=== PATIENT | male | born 1940 | race Caucasian/White ===

== ENCOUNTER 2018-12-30 12:35 | Inpatient (IN) ==
--- NOTE | 2018-12-30 14:01 | EKG Report ---
Test Performed on : 12/30/2018 1:55:34 PM Test Reason : CHF/CP Blood Pressure : / mmHG Vent. Rate : 087 BPM Atrial Rate : 097 BPM P-R Int : 000 ms QRS Dur : 100 ms QT Int : 362 ms P-R-T Axes : 000 007 055 degrees QTc Int : 435 ms Atrial fibrillation. Nonspecific T wave abnormality Abnormal ECG No previous ECGs available Unconfirmed Result
--- NOTE | 2018-12-30 14:19 | Diag Imaging Result Doc PS360 ---
CHEST-PORTABLE - 12/30/2018 INDICATION: CHF/CP COMPARISON: 09/02/2015 FINDINGS: There is cardiomegaly and pulmonary vascular congestion. Lung volume are low. There may be some trace interstitial pulmonary edema centrally. No significant pleural effusion. IMPRESSION: Cardiomegaly, pulmonary vascular congestion, perhaps trace pulmonary edema. Electronically signed by Donnie Pace 12/30/2018 2:17 PM
[2018-12-30 14:23] LABS: BASO# 0.04 X1000 (0.0-0.2); BASO% 0.6 % (0.0-0.8); EOS# 0.13 X1000 (0.0-0.7); EOS% 1.8 % (0.0-10.0); HEMATOCRIT 42.2 % (42.0-52.0); HEMOGLOBIN 13.7 g/dL (14.0-18.0); LYMPH% 15.4 % (20.5-51.1); MCH 32.7 PG (27-31); MCHC 32.5 g/dL (33-37); MCV 100.7 FL (81-99); MONO# 1.07 X1000 (0.11-0.59); MONO% 14.9 % (1.7-9.3); MPV 11.2 FL (7.4-10.4); NEUT# 4.82 X1000 (1.4-6.5); NEUT% 67.3 % (42.2-75.2); PLT 137 X1000 (130-400); RBC 4.19 XMIL (4.7-6.1); RDW 13.2 % (11.5-14.5); WBC 7.16 X1000 (4.8-10.8)
[2018-12-30 14:48] LABS: BANDS 1 % (0-1); BASO 1 % (0-1); LYMPHS 26 % (21-51); MONO 4 % (1-9); SEGS 66 % (42-75)
[2018-12-30 14:49] LABS: HYPOCHROM OCCASIONAL; LARGE PLATELETS OCCASIONAL
[2018-12-30 14:54] LABS: CALCIUM 9.5 mg/dL (8.8-10.2); CREATININE 2.2 mg/dL (0.7-1.2); MAGNESIUM 2.3 mg/dL (1.5-2.7); POTASSIUM 5.4 mmol/L (3.5-5.1)
[2018-12-30] MEDS ORDERED: SODIUM CHLORIDE 0.9% INJ SCH (16:00)
[2018-12-30] MEDS: HUMULIN R SUBQ SCH ×2 (16:25→21:24)
[2018-12-30] MEDS ORDERED: SAMSCA PO ONE (16:31)
[2018-12-30] MEDS: PROTONIX IV SCH (17:19)
[2018-12-30 17:24] LABS: ALLEN TEST YES; BE -0.6 mmoll (-3.0-3.0); BLOOD TYPE ARTERIAL; HCO3-(ACT) 24.3 mmoll (20.0-26.0); METHB 1.1 % (0.0-1.5); O2(CT) 18.7 mL/dL (15.0-23.0); O2HB 93.3 % (95.0-99.0); PO2(98.6) 78 mmHg (60-100); SAMPLE BLOOD; SAO2 96.6 % (95.0-100.0); THB 14.2 g/dL (11.5-17.4); pH(98.6) 7.32 (7.35-7.45)
[2018-12-30 17:29] LABS: MODALITY CANNULA; PCO2(98.6) 51 mmHg (35-45)
--- NOTE | 2018-12-30 19:02 | HISTORY AND PHYSICAL ---
CHIEF COMPLAINT: Shortness of breath, PND and orthopnea for the last few days. HISTORY OF PRESENT ILLNESS: He is an 78-year-old white gentleman who was not seen in my office since 08/2016 and his . Apparently he is going to [place] back and forth. Recently he is staying most often in [place] with one of his daughter. 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 He came in my office today with shortness of breath, PND and orthopnea. No swelling of feet. He has known history of chronic atrial fibrillation, on anticoagulants with Eliquis. Recently his creatinine is going up. He has chronic kidney disease. Chest x-ray showed cardiomegaly with mild CHF. Basically admitted to [facility] in acute congestive heart failure. ProBNP was high. PAST MEDICAL HISTORY: 1. Allergic rhinitis. 2. Deafness, on hearing aids. 3. Coronary artery disease, status post bypass surgery. 4. Hyperlipidemia. 5. Hypothyroidism. 6. Type 2 diabetes. 7. Chronic atrial fibrillation. PAST SURGICAL HISTORY: Bilateral cataract surgery, bypass surgery, right knee total arthroplasty. MEDICATIONS: Aspirin 81 mg daily; Crestor 20 daily; Singulair 10 daily; Synthroid 75 mcg daily; Eliquis 5 mg p.o. b.i.d.; amlodipine 5 daily; Amaryl 4 mg p.o. b.i.d.; amitriptyline 25 daily; Levemir 20 units subcutaneously in the morning, 15 in the evening.; vitamin E 400 daily. ALLERGIES: Penicillin and promethazine. SOCIAL HISTORY: Currently lives in [place]. No smoking, no alcohol. , 4 children. Retired. Vaccinations: Influenza vaccine in 2018, pneumococcal in 2014. FAMILY HISTORY: Father at 35 from surgical complication. Mother of heart attack at 70. REVIEW OF SYSTEMS: HEENT: No headache. No vision problem. Deafness. No sore throat. Neck: No goiter. No lymphadenopathy. No bruit. Cardiopulmonary: Cough, shortness of breath, wheezing. No chest pain. No swelling of feet. GI: No nausea, vomiting, abdominal pain. : No history of hesitancy, frequency or dysuria. He has ulcerative knot healing on the right lateral side of the foot, slowly healing. No claudication symptoms. No tingling or numbness. Neurologic: No focal symptoms, weakness or seizure activity. PHYSICAL EXAMINATION: VITAL SIGNS: Temperature is 98 degrees, pulse is 89, blood pressure is 141/82, on 3 L nasal cannula 96%. Five feet 10 inches, 217 pounds. HEENT: Atraumatic, normocephalic. Pupils equal and react to light. He has hearing aids. NECK: Supple. JVD slightly elevated. CHEST: Crackles on bilateral. HEART: Sounds are erratic with a gallop. No S4. He has a 2/6 systolic murmur in the left lower sternal border in aortic area. ABDOMEN: Belly is soft, nontender. Good bowel sounds. RECTAL: Deferred. EXTREMITIES: No peripheral edema noted. Sensory exam is intact. He has a 0.5 cm small ulcer on the lateral side of the right foot noted. LABORATORY DATA: CBC: White cell count 7.1, hematocrit 42, platelets 137,000. ABG: PH is 7.32, pCO2 is 51, pO2 is 78 on 32%. SMA 7: Sodium 129 in my office, potassium 5.4, BUN 34, creatinine 2.2, glucose 151. Magnesium, cardiac enzymes were negative. ProBNP 7000. DIAGNOSTIC DATA: EKG showed atrial fibrillation. Chest x-ray: Cardiomegaly with CHF. No pleural effusions. ASSESSMENT AND PLAN: 1. An 78-year-old white gentleman admitted to the hospital with congestive heart failure. I do not have baseline ejection fraction. We will repeat the echocardiography, with underlying chronic atrial fibrillation. Plan is (1) oxygen, fluid restrictions, daily weights, intravenous Lasix and Samsca 1 dose. (2) Follow up on SMA 7. 2. Chronic kidney disease stage 3. Check the urine protein/creatinine ratio and serum protein electrophoresis. 3. Atrial fibrillation, persistent. Rate control, on his Eliquis. Decrease the dose 2.5 p.o. b.i.d. 4. Type 2 diabetes, on Levemir. Discontinue Amaryl in light of chronic kidney disease. Follow up on sliding scale with insulin coverage. 5. Check bladder scan. Postvoid residual is 80 mL after emptying. 6. Allergic rhinitis. On Singulair. 7. Gastrointestinal prophylaxis with intravenous Protonix. 8. Hyperlipidemia, on Crestor. 9. Depression, on amitriptyline 25 at bedtime. 10. Reconcile home medications. 11. Follow up on the pending labs and echocardiography report. Discussed the plan of care with the family. Will follow up. cc: Jeff Godinez MD MTDD
[2018-12-30] MEDS ORDERED: ELIQUIS PO SCH (21:00)
[2018-12-30] MEDS: CRESTOR PO SCH (21:23)
[2018-12-30] MEDS: ELIQUIS PO SCH (21:23)
[2018-12-30] MEDS: PYRIDOXINE PO SCH (21:23)
[2018-12-30] MEDS: LEVEMIR SUBQ SCH (21:24)
[2018-12-31 06:09] LABS: CALCIUM 9.9 mg/dL (8.8-10.2); CREATININE 2.6 mg/dL (0.7-1.2); POTASSIUM 5.4 mmol/L (3.5-5.1)
[2018-12-31] MEDS: HUMULIN R SUBQ SCH ×4 (06:12→21:06)
[2018-12-31] MEDS: SYNTHROID PO SCH (06:26)
[2018-12-31 08:04] LABS: PROTEIN CREAT RATIO 3.5; UR CREAT RANDOM 35.1 mg/dL (14-26)
[2018-12-31] MEDS: LASIX IV SCH (09:38)
[2018-12-31] MEDS: LEVEMIR SUBQ SCH ×2 (09:38→21:05)
[2018-12-31] MEDS: ASPIRIN PO SCH (09:39)
[2018-12-31] MEDS: NORVASC PO SCH (09:39)
[2018-12-31] MEDS: PYRIDOXINE PO SCH ×2 (09:39→21:06)
[2018-12-31] MEDS: SINGULAIR PO SCH (09:39)
[2018-12-31] MEDS: ELAVIL PO SCH (09:39)
[2018-12-31] MEDS: VITAMIN E PO SCH (09:39)
[2018-12-31] MEDS: ELIQUIS PO SCH ×2 (09:39→21:05)
--- NOTE | 2018-12-31 12:50 | PROGRESS NOTE ---
DATE: 12/31/2018 SUBJECTIVE: An 78-year-old, white gentleman, admitted with shortness of breath, PND and orthopnea, known case of chronic atrial fibrillation. The patient also had chronic kidney disease. Complaining of decreased exercise tolerance. He denied any high-grade fever or chills. Mild cough. No expectoration. Denied any chest pain. This morning, patient is feeling better. He was able to sleep better last night. Admission history and physical noted. PAST MEDICAL HISTORY: Coronary artery disease status post CABG, hypothyroidism. NIDDM, chronic atrial fibrillation. The patient does have deafness, allergic rhinitis. PHYSICAL EXAMINATION: Vital signs: Blood pressure 142/70, pulse 80, respiration 18, temperature 97.8 degrees. Skin: Senile turgor. Neck: Supple. No JVD. Lungs: Bilateral good air entry present. Few basal crepitations. Cardiovascular: S1 and S2 heard. Irregularly irregular, 2/6 systolic murmur at the apex. Abdomen: Soft, globular. Bowel sounds present. Extremities: No cyanosis, clubbing. No acute DVT. Central nervous system: Alert, awake able to move all 4 limbs. LABORATORY DATA: Lab done today, BUN 38, creatinine 2.6, sodium 134, potassium 5.4. ProBNP on admission was 6947. CONSIDERATION: 1. Pulmonary edema. 2. Chronic atrial fibrillation. 3. Diabetes mellitus. 4. Hypothyroidism. 5. Allergic rhinitis, labs and medication noted. Overall plan discussed with the family. We will continue current treatment and close observation. cc: MD Jeff Cardona MD
--- NOTE | 2018-12-31 13:53 | Diag Imaging Result Doc PS360 ---
EXAM: CHEST-2 VIEWS INDICATION: hypoxia TECHNIQUE: 2 views COMPARISON: 12/30/2018 FINDINGS: Lung volumes remain low. Mildly prominent central vasculature suggesting mild pulmonary venous congestion is stable. Mild interstitial thickening that probably represents edema +/- pneumonia more prominent at the right lower lung zone is unchanged. No new consolidation is identified. Cardiac silhouette is stable. IMPRESSION: Stable chest. Electronically signed by Kuldeep Servin 12/31/2018 1:50 PM
[2018-12-31] MEDS: PROTONIX IV SCH (17:12)
[2018-12-31] MEDS: CRESTOR PO SCH (21:05)
[2018-12-31] MEDS ORDERED: TYLENOL PO PRN (22:13)
[2018-12-31] MEDS ORDERED: ZOFRAN IV PRN (22:13)
[2019-01-01 06:03] LABS: BASO# 0.03 X1000 (0.0-0.2); BASO% 0.5 % (0.0-0.8); EOS# 0.21 X1000 (0.0-0.7); EOS% 3.3 % (0.0-10.0); HEMOGLOBIN 13.5 g/dL (14.0-18.0); IMM GRAN# 0.14 X1000 (0.0-0.04); IMM GRAN% 2.2 % (0.0-0.5); LYMPH# 0.91 X1000 (1.2-3.4); LYMPH% 14.2 % (20.5-51.1); MCH 32.7 PG (27-31); MCHC 32.1 g/dL (33-37); MCV 101.7 FL (81-99); MONO# 0.74 X1000 (0.11-0.59); MONO% 11.6 % (1.7-9.3); MPV 11.5 FL (7.4-10.4); NEUT# 4.36 X1000 (1.4-6.5); NEUT% 68.2 % (42.2-75.2); PLT 147 X1000 (130-400); RBC 4.13 XMIL (4.7-6.1); RDW 12.8 % (11.5-14.5); WBC 6.39 X1000 (4.8-10.8)
[2019-01-01 06:44] LABS: ALB/GLOB RATIO 0.8; ALBUMIN 3.4 g/dL (3.5-5.0); CALCIUM 9.6 mg/dL (8.8-10.2); CREATININE 2.4 mg/dL (0.7-1.2); MAGNESIUM 2.4 mg/dL (1.5-2.7); POTASSIUM 5.5 mmol/L (3.5-5.1); TOTAL BILIRUBIN 0.73 mg/dL (0.20-1.00); TOTAL PROTEIN 7.6 g/dL (6.3-8.3)
[2019-01-01] MEDS: HUMULIN R SUBQ SCH ×4 (06:49→21:12)
[2019-01-01] MEDS: SYNTHROID PO SCH (06:49)
--- NOTE | 2019-01-01 07:48 | Diag Imaging Result Doc PS360 ---
EXAM: CHEST-PORTABLE INDICATION: dyspnea TECHNIQUE: One view COMPARISON: 12/31/2018 FINDINGS: Inspiration is suboptimal with lung volumes lower than the previous study. The central vasculature appears slightly more prominent. This is probably due to vascular crowding from poor inspiration in addition to the mild pulmonary venous congestion. No other new consolidations are identified. Cardiac silhouette is stable. IMPRESSION: Lower lung volumes and slight increase in central vascularity. Electronically signed by Kuldeep Servin 01/01/2019 7:46 AM
[2019-01-01] MEDS: VITAMIN E PO SCH (08:44)
[2019-01-01] MEDS: LASIX IV SCH (08:44)
[2019-01-01] MEDS: ELIQUIS PO SCH ×2 (08:44→21:10)
[2019-01-01] MEDS: LEVEMIR SUBQ SCH ×2 (08:44→21:12)
[2019-01-01] MEDS: SINGULAIR PO SCH (08:44)
[2019-01-01] MEDS: NORVASC PO SCH (08:44)
[2019-01-01] MEDS: ASPIRIN PO SCH (08:44)
[2019-01-01] MEDS: ELAVIL PO SCH (08:44)
[2019-01-01] MEDS: PYRIDOXINE PO SCH ×2 (08:45→21:11)
[2019-01-01] MEDS ORDERED: KAYEXALATE PO ONE (10:20)
--- NOTE | 2019-01-01 11:05 | PROGRESS NOTE ---
DATE: 01/01/2019 SUBJECTIVE: Mr. Roque is feeling better. He denied any high-grade fever or chills. The patient claimed he was able to sleep better last night. The patient did have a headache and some nausea yesterday. I gave him Tylenol and p.r.n. Zofran which did help. No typical chest pain, orthopnea, PND. Patient is concerned about ulcer on the right foot. No orthopnea or PND. Denied any leg swelling. No diarrhea, blood or mucus in the stool. Patient admitted with pulmonary edema. Known case of atrial fibrillation, chronic kidney disease. OBJECTIVE: Vitals: His vital signs noted. Blood pressure 147/60, pulse 88, respirations 17, temperature 97.4 degrees. Neck: Supple. No JVD. Lungs: Bibasilar crepitation. No rales. CVS: S1 and S2, irregularly irregular. 2-3/6 systolic murmur at the apex. Abdomen: Soft, globular. Bowel sounds present. Patient does have ulcer on the right foot at the base of the 5th toe with some infection. ACCOUNTS RECEIVABLE ANALYST: Alert, awake, able to move all 4 limbs. LABORATORY DATA DONE TODAY: Hemoglobin 13.5, hematocrit 42, platelet count 147,000, WBC count 6.39, potassium was 5.5, BUN 47, creatinine 2.4, sodium 130. ASSESSMENT AND PLAN: I am going to decrease Lasix to 20 mg. Give Kayexalate. Patient's problem includes pulmonary edema. Chest x-ray results reviewed and discussed with the family and patient. Atrial fibrillation. Chronic kidney disease. The patient seems to be minimally volume depleted. I decreased Lasix to 20 mg IV. Ulcer on the right foot, we will do local wound care with Bactroban ointment. Continue. Other problems include hypothyroidism. His echocardiogram result is not available. I am going to repeat electrolytes and CBC in the morning. Fall precaution. Headache and nausea improved. cc: MD Jeff Cardona MD
[2019-01-01] MEDS: BACTROBAN OINTMENT TOP SCH ×2 (12:00→21:12)
[2019-01-01 12:25] LABS: CALCIUM 10.1 mg/dL (8.8-10.2); CREATININE 2.6 mg/dL (0.7-1.2)
[2019-01-01 12:32] LABS: POTASSIUM 5.5 mmol/L (3.5-5.1)
[2019-01-01] MEDS: PROTONIX IV SCH (17:16)
[2019-01-01] MEDS ORDERED: TUMS PO ONE (20:43)
[2019-01-01] MEDS: CRESTOR PO SCH (21:10)
[2019-01-02 05:32] LABS: HEMATOCRIT 40.1 % (42.0-52.0); HEMOGLOBIN 12.8 g/dL (14.0-18.0); MCH 32.7 PG (27-31); MCHC 31.9 g/dL (33-37); MCV 102.6 FL (81-99); MPV 11.5 FL (7.4-10.4); RBC 3.91 XMIL (4.7-6.1); RDW 12.7 % (11.5-14.5); WBC 6.6 X1000 (4.8-10.8)
[2019-01-02 05:51] LABS: CALCIUM 9.5 mg/dL (8.8-10.2); CREATININE 2.4 mg/dL (0.7-1.2); POTASSIUM 5.2 mmol/L (3.5-5.1)
[2019-01-02] MEDS: HUMULIN R SUBQ SCH ×4 (06:36→20:58)
[2019-01-02] MEDS: SYNTHROID PO SCH (06:36)
[2019-01-02] MEDS: VITAMIN E PO SCH (08:55)
[2019-01-02] MEDS: LEVEMIR SUBQ SCH ×2 (08:55→20:57)
[2019-01-02] MEDS: NORVASC PO SCH (08:56)
[2019-01-02] MEDS: ELAVIL PO SCH (08:56)
[2019-01-02] MEDS: ELIQUIS PO SCH ×2 (08:56→20:58)
[2019-01-02] MEDS: BACTROBAN OINTMENT TOP SCH ×2 (08:56→20:58)
[2019-01-02] MEDS: SINGULAIR PO SCH (08:56)
[2019-01-02] MEDS: ASPIRIN PO SCH (08:56)
[2019-01-02] MEDS: LASIX IV SCH (08:57)
[2019-01-02] MEDS: PYRIDOXINE PO SCH ×2 (08:57→20:58)
--- NOTE | 2019-01-02 09:49 | ECHO REPORT ---
ORDER DATE: 12/30/2018 INDICATION: An 78-year-old male, coronary bypass surgery, chest pain, atrial fibrillation. M-MODE MEASUREMENTS: Left ventricle end diastole: 5.3. Left ventricle end systole: 4.7. Posterior wall: 1.0. Interventricular septum: 1.1. Left atrium: 4.3. Aortic root: 3.4. SUMMARY OF 2-DIMENSIONAL IMAGIN. The study was clinically difficult. The patient had very poor acoustic windows. Definity was added. 2. The left ventricular chamber appears to be mildly enlarged. 3. Both atria are moderately dilated. 4. The right ventricle also appears to be mildly enlarged. 5. There is calcification of the mitral annulus. Color flow mapping of the mitral valve indicates a mild degree of regurgitation. 6. Pulsed wave Doppler of mitral inflow shows single filling wave. 7. The aortic valve is densely calcified. This shows restricted opening. Maximum gradient across the valve is 56 mmHg. The mean gradient is 35 mmHg. 8. The severity of aortic stenosis in this case appears to be significant due to the ratio of LVOT VTI over aortic valve VTI of approximately 0.14, which would indicate that this patient has severe obstruction to the outflow tract of the left ventricle. Color flow mapping indicates a mild degree of aortic regurgitation. 9. The global left ventricular ejection fraction is estimated roughly at 40% to 45%. There is akinesis of the inferior wall and significant hypokinesis of the basal inferolateral wall. 10.The tricuspid valve shows a mild degree of regurgitation. 11.The inferior vena cava is not dilated. Pulmonary pressure is estimated at 47 mmHg. 12.The pulmonic valve is unremarkable. 13.There is no pericardial effusion. No masses, no thrombus. Clinical correlation recommended. cc: MD Jeff Landrum MD
[2019-01-02] MEDS: PROTONIX IV SCH (17:01)
[2019-01-02] MEDS: CRESTOR PO SCH (20:58)
--- NOTE | 2019-01-02 21:46 | PROGRESS NOTE ---
DATE: 01/02/2019 SUBJECTIVE: Events noted over the weekend. 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 Shortness of breath improved. He also has persistent atrial fibrillation in the monitoring tech. He has chronic kidney disease. Echocardiogram was done. Results this morning were pending. Also evaluating for home oxygen with portable oxygen. He was extremely short of breath even at minimal, and oxygen level was plummeting to 80%. The patient is sitting out of the bed. Breathing is improved. No PND, no orthopnea. No peripheral edema. OBJECTIVE: Vital signs: Temperature is 97 degrees, pulse is 88, blood pressure is 130/64, 94% on 3 L. Ins and outs negative about 5 L. HEENT Exam: Within normal limits. Respiratory: Decreased crackles. Cardiovascular: Heart sounds are regular with a 3/6 systolic murmur in the aortic area. Abdomen: Belly is soft, nontender. Extremities: No peripheral edema. INVESTIGATIONS: CBC: White cell count 6.6, hematocrit 40, platelets 150,000. SMA7: Sodium 133, potassium 5.2, chloride 97, BUN 48, creatinine 2.4, glucose 180. SPEP was negative. Chest x-ray: Stable cardiomegaly. ASSESSMENT AND PLAN: 1. Chronic kidney disease with proteinuria. Postvoid residual urine is negative. Continue to monitor, stable. 2. Acute systolic heart failure with severe aortic stenosis based on the echocardiography, mean gradient 35, peak gradient 56 mmHg. Needs further evaluation for transaortic valve replacement. We will discuss with his liability analyst in [place]. 3. Diabetes. Stop the glipizide. We will adjust the Levemir. 4. Evaluation for home oxygen. 5. Atrial fibrillation on Eliquis 2.5 p.o. b.i.d. Rate is well controlled. 6. Hyperlipidemia on Crestor. 7. Anemia of chronic disease. SPEP is negative. 8. Hypothyroidism on Synthroid. Discussed the findings of the echocardiogram. I will coordinate the care with his liability analyst in [place], and he also needs evaluation for living will. LEVEL OF DOCUMENTATION: 35 minutes. cc: Jeff Godinez MD MTDD
[2019-01-03] MEDS: HUMULIN R SUBQ SCH ×4 (06:27→20:02)
[2019-01-03] MEDS: SYNTHROID PO SCH (06:28)
[2019-01-03] MEDS: SINGULAIR PO SCH (08:37)
[2019-01-03] MEDS: ASPIRIN PO SCH (08:37)
[2019-01-03] MEDS: ELAVIL PO SCH (08:37)
[2019-01-03] MEDS: VITAMIN E PO SCH (08:38)
[2019-01-03] MEDS: NORVASC PO SCH (08:38)
[2019-01-03] MEDS: LASIX IV SCH (08:38)
[2019-01-03] MEDS: ELIQUIS PO SCH ×2 (08:38→20:02)
[2019-01-03] MEDS: BACTROBAN OINTMENT TOP SCH ×2 (08:52→20:03)
[2019-01-03] MEDS: PYRIDOXINE PO SCH ×2 (08:53→20:03)
[2019-01-03] MEDS: LEVEMIR SUBQ SCH ×2 (09:08→20:03)
--- NOTE | 2019-01-03 12:43 | CARDIOLOGY CONSULTATION ---
DATE: 01/03/2019 REASON FOR CONSULTATION: Cardiology was consulted for heart failure, severe aortic stenosis and coronary artery disease, coronary artery bypass grafting. HISTORY OF PRESENT ILLNESS: Mr. Roque is an 78-year-old gentleman who had coronary artery bypass grafting, 5 vessel at [facility] about 20 years ago. Subsequently, he had another cardiac catheterization again going back 10 to 15 years and had a stent placement done again at [facility]. He is followed up by his telesales manager in [place]. He had been doing reasonably well. Does not complain of any chest pain. Comes to the hospital with increasing shortness of breath, PND, and orthopnea. He denies chest pain. He has chronic atrial fibrillation, is on anticoagulation therapy, he is on Eliquis. He has chronic renal insufficiency with creatinine has been around 2 for long time. There are no obvious palpitations. There is no syncope. REVIEW OF SYSTEMS: A 14 point review of system was done.GI System: There is no history of nausea, vomiting, or diarrhea. There is no history of hematemesis or melena. Central nervous system: No focal weakness to suggest a CVA, TIA. System: There is no dysuria or hematuria. PAST MEDICAL HISTORY: 1. Coronary artery disease, status post coronary artery bypass grafting 15 years back at [facility]. 2. COPD. 3. Chronic atrial fibrillation. 4. Diabetes. 5. Chronic renal insufficiency. 6. Hypothyroidism. 7. Deafness, on hearing aid. 8. Allergic rhinitis. 9. Hypothyroidism. 10. Bilateral cataract surgery. 11. Right knee total replacement. HOME MEDICATIONS: 1. Aspirin 81 mg a day. 2. Crestor 20. 3. Singular 10. 4. Synthroid 75. 5. Eliquis 5 mg p.o. b.i.d. 6. Amlodipine 5. 7. Amaryl 4 mg p.o. b.i.d. 8. Amitriptyline 25. 9. Levaquin 20 units subcutaneously in the morning and 15 in the evening. ALLERGIES: She is allergic to penicillin and promethazine. SOCIAL HISTORY: Patient does not smoke. There is no history of alcohol abuse. PHYSICAL EXAMINATION: Vital Signs: Blood pressure was 140/80. Cardiovascular: First and second heart sounds were heard. There was ejection systolic murmur. Respiratory System: Normal air entry. There were fine inspiratory crepitations. Abdomen: Soft, nontender. There was no guarding or rigidity. Bowel sounds were heard. Central nervous system: Moving all 4 extremities. Extremities: Examination of extremities revealed trace edema. DIAGNOSTIC DATA: Chest x-ray on admission revealed cardiomegaly heart failure. Electrocardiogram revealed atrial fibrillation. His echocardiogram revealed ejection fraction of 40% to 45%, suboptimal echocardiogram. By VTI there was severe aortic stenosis with a maximum gradient of 56 mmHg. Mean gradient of 35 mmHg with a VTI aortic valve area of 0.5 square cm. LABORATORY DATA: Laboratory examination done today revealed a sodium 133, potassium 5.2, BUN 48, creatinine 2.4, blood sugar 185. ProBNP elevated at 6947. ASSESSMENT AND PLAN: Mr. Moe Roque is an 78-year-old gentleman with history of coronary artery disease, coronary artery bypass grafting at [facility], hypertension, diabetes, chronic atrial fibrillation, chronic renal insufficiency who is admitted with increasing shortness of breath, orthopnea, and paroxysmal nocturnal dyspnea. Patient was admitted with congestive heart failure. He also has history of chronic obstructive pulmonary disease. The patient has chronic kidney disease stage 3. Per family, his creatinine has been stable around 2 to 2.2. His echocardiogram revealed likely severe aortic stenosis with valve area VTI of 0.5 cm2 with LV dysfunction. Mean gradient of 35 mmHg. Maximum gradient of 56 mmHg. Ejection fraction of 40% to 45%. From a cardiac standpoint, the patient would benefit from further cardiac workup as far as given his severe aortic stenosis as well as symptoms and admission with congestive heart failure. They would like to have further testing and evaluation for TAVR done at [facility]. As far as medications are concerned, I have not made any changes to his medication. For diabetes, he is on insulin. For hypercholesterolemia, he is on Crestor. He is more euvolemic now and Lasix has been decreased to 20. Anticoagulation therapy for atrial fibrillation. He is on Eliquis 2.5 mg twice daily. He is also on Protonix. I will discuss with [facility] and plan for patient to be transferred to [place] for further management. Thank you for the consult. We will follow hospital course. cc: MD Jeff Pabon MD MTDD
[2019-01-03] MEDS ORDERED: MIRALAX PO ONE (12:54)
[2019-01-03] MEDS ORDERED: PROTONIX PO SCH (17:00)
--- NOTE | 2019-01-03 18:16 | Diag Imaging Result Doc PS360 ---
EXAM: US RENAL 2 (RETROPER) COMPLETE INDICATION: urinary retention TECHNIQUE: COMPARISON: None. FINDINGS: There are a couple of tiny simple cyst associated with both kidneys measuring up to 1.8 cm. The kidneys are normal in echotexture, otherwise. There is no discrete renal mass or hydronephrosis. The right kidney measures 11.4 cm and the left kidney measures 12.1 cm in the greatest longitudinal axes. The right renal cortex measures 1.1 cm and the left renal cortex measures 1.2 cm in thickness. The urinary bladder is partially distended and is grossly unremarkable, otherwise. IMPRESSION: A couple of tiny simple appearing renal cysts bilaterally. Essentially unremarkable renal ultrasound, otherwise. Electronically signed by Kuldeep Servin 01/03/2019 6:14 PM
[2019-01-03 19:51] VITALS: BP 130/70
[2019-01-03] MEDS: CRESTOR PO SCH (20:02)
--- NOTE | 2019-01-04 22:38 | DISCHARGE SUMMARY ---
ADMISSION DATE: 12/30/2018 DISCHARGE DATE: 01/03/2019 DISCHARGE DIAGNOSES: 1. Acute congestive heart failure with systolic dysfunction, ejection fraction 40% to 45%, associated with severe aortic stenosis; estimated aortic valve area 0.2 cm2, associated with mild pulmonary hypertension. 2. Chronic atrial fibrillation. SECONDARY DIAGNOSES: 1. Allergic rhinitis. 2. Deafness, on hearing aids. 3. Coronary artery disease, status post bypass surgery. 4. Hyperlipidemia. 5. Hypothyroidism. 6. Type 2 diabetes. 7. Hyponatremia due to volume overload. 8. Chronic kidney disease/renal failure. Baseline creatinine 2.6. CONSULTS: Taye Coles MD PROCEDURES: 1. Echocardiography. Reported findings are LV systolic function decreased to 40% to 45%; pulmonary hypertension noted; severe aortic stenosis; peak gradient 56 mmHg, mean gradient 35 mmHg, estimated aortic valve area 0.2 cm2. 2. Ultrasound of the kidneys: No hydronephrosis noted. Tiny simple renal cysts bilaterally. BRIEF HISTORY: Please see the H and P that was done on 12/30/2018. In brief, he is an 78-year- old white gentleman with chronic diabetes; mild aortic stenosis; chronic atrial fibrillation; CAD, status post bypass surgery. With the above medical problems, under the care of Dr. Palma, hygiene teacher in [place]. Admitted to the hospital with shortness of breath, PND and orthopnea, without any swelling of feet. The patient was also in rapid atrial fibrillation. The patient was found to have creatinine 2.6, sodium 129. Chest x-ray: Cardiomegaly with CHF. HOSPITAL COURSE: The patient was admitted in [facility]. The patient was given fluid restrictions, low salt, daily weights. The patient was given IV Lasix, oxygen and Samsca. The patient had an excellent diuresis, about 7 L of fluid taken out. He continues to have exertional shortness of breath, requiring oxygen. Pulse oximetry 88%. Sodium level slowly came back normal. The patient remains in atrial fibrillation on telemetry. Eliquis dose has been decreased to 2.5 p.o. b.i.d. He also had bladder retention. Straight catheterization was done. Ultrasound of the kidneys was negative for hydronephrosis. Echocardiography findings were alarming, with severe aortic stenosis and decreased LV function, which are new, after discussing with the hygiene teacher in [place]. For chronic kidney disease, SPEP was negative. He has a proteinuria of 3.5 g of urine, based on the urine protein/creatinine ratio. It is all related to chronic diabetes. I discontinued glipizide since he has chronic kidney disease. Dr. Coles was consulted. The patient has been transferred to [facility] for TAVR. He has been transferred by ambulance to [facility] in a stable condition. LABORATORY DATA: CBC: White cell count 6.6, hematocrit 40, platelets 150,000. ABG pH is 7.32, pCO2 is 50, pO2 is 78 on 32%. Sodium 133, potassium 5.2, BUN 48, creatinine 2.4. ProBNP 7000. SPEP was negative. DIAGNOSTIC DATA: Chest x-ray: Cardiomegaly; improving CHF. DISCHARGE MEDICATIONS: 1. Aspirin 81 mg daily. 2. Crestor 20 daily. 3. Singulair 10 daily. 4. Synthroid 75 daily. 5. Eliquis 2.5 p.o. b.i.d. 6. Amlodipine 5 daily. 7. Discontinue glimepiride. 8. Amitriptyline 25 daily. 9. Levemir 20 in the morning, 15 at night. 10. B6, 100 mg p.o. b.i.d. 11. Vitamin E 4000 units daily. 12. Fish oil 1200 1 tablet p.o. b.i.d. DISPOSITION: Further evaluation at [facility] for transcatheter aortic valve replacement. cc: MD Taye Mirza MD
== END 2019-01-03 21:04 | disposition short-term general hospital (02) | DRG 291 ==
LOC: DIRADM 12:35 → 3S 12:55
PROVIDERS: ADMIT Internal Medicine; ATTEND Internal Medicine
CPT/HCPCS: 71010; 71020; 71045; 71046; 76770; 80048; 80053; 82550; 82570; 82784; 82805; 82948; 83735; 83880; 84155; 84156; 84165; 84166; 84484; 85025; 85027; 86334; 93005; 93010; 93306; 94761; A9270; C8929; C9113; J1940; J2405; Q9957; S0164; XXXXX